=== PATIENT | female | born 1965 | race Caucasian/White ===

== ENCOUNTER → 2025-04-19 | Outpatient (CLI) | payer OTHER, SELFPAY ==
[2025-04-19 11:33] LABS: Ferritin 183 ng/mL (22-378); Free T3 3.3 pg/mL (2.18-3.98); Iron 104 ug/dL (50-170); Iron Binding Capacity,Total 330 ug/dL (250-450); Iron Binding Capacity,Unsat 226 ug/dL (228-428); Vitamin B12 344 pg/mL (180-914); Vitamin D,25 Hydroxy 20.4 ng/mL (30-100)
[2025-04-20 09:08] LABS: HOMOCYSTEINE 10.3 umol/L (0.0-17.2)
== END | disposition home or self-care (01) ==
PROVIDERS: PCP Nurse Practitioner Family
DX: E61.1 Iron deficiency (principal); E53.8 Deficiency of other specified B group vitamins; E55.9 Vitamin D deficiency, unspecified; E03.9 Hypothyroidism, unspecified
CPT/HCPCS: 36415; 82306; 82607; 82728; 83090; 83540; 83550; 84432; 84439; 84443; 84481; 84482; 86376; 86800